=== PATIENT | male | born 1985 | race African-American/Black ===

== ENCOUNTER 2017-01-05 10:38 | Emergency (ER) | payer SELFPAY ==
[~2017-01-05 10:38] MED LIST: NO MEDICATIONS
== END 2017-01-05 10:51 | disposition home or self-care (01) ==
LOC: SED 10:38
DX: B35.3 Tinea pedis (principal); L03.115 Cellulitis of right lower limb; F17.200 Nicotine dependence, unspecified, uncomplicated; Z98.890 Other specified postprocedural states
CPT/HCPCS: 99282